=== PATIENT | male | born 1985 | race Caucasian/White ===

== ENCOUNTER 2019-01-13 15:10 | Emergency (ER) | payer BC, SELFPAY ==
[2019-01-13 15:14] VITALS: BP 176/117; PULSE 92; RESP 20; TEMP 36.8; O2SAT 98
--- NOTE | 2019-01-13 15:39 | DI.RAD_ITS ---
SYMPTOM/DIAGNOSIS: PALPITATIONS PA AND LATERAL CHEST: The heart is normal in size. The lungs are clear. The mediastinal structures and pleura appear intact. CONCLUSION: Normal chest.
--- NOTE | 2019-01-13 15:40 | W.ED.GENAD ---
Discharge Plan Disposition Patient Disposition: HOME Condition: Improving Discharge Details Chief Complaint: Anxiety Clinical Impression: Palpitations Primary Care Provider: Mayi Lau ED Provider: Bakari Masters Home Meds and New Rx's Prescriptions: Continued buprenorphine-naloxone [Suboxone] 8-2 mg Film 1 film Sublingual DAILY RF: 0 Discharge Instructions Instructions: Palpitations (ED) Additional Instructions: Your workup including a cardiac troponin, thyroid testing, chest x-ray, EKG were unremarkable. Our care management team will arrange a follow-up appointment for you in clinic for recheck. Return if you have recurrent palpitations, develop chest pain, or any other acute concerns. Medical Decision Making 33-year-old male who states yesterday and today had brief 1-2-minute episodes of palpitations and rapid heart rate while at work. No chest pain or shortness of breath or so, with that, it improved on its own. He states he developed increased anxiety after looking things up on the Internet. He arrives to the emergency department with blood pressure 176/117, pulse 92, otherwise normal vital signs. Differential diagnosis includes but not limited to: benign palpitations, anxiety, thyroid abnormality, dehydration or electrolyte abnormality. Screening EKG, laboratories, chest x-ray obtained. Laboratories are unremarkable. X-ray without acute findings. He is improved. Discussed with him that if he has recurrent episodes of palpitations he may benefit from a Holter monitor. We will ask care management to arrange an outpatient follow-up with Mayi Lau his primary care physician. He understands homecare as well as return precautions. Lab Data Lab results reviewed: Yes I reviewed the patient's lab results. Laboratory Results - last 24 hr 01/13/19 01/13/19 16:00 16:00 WBC 7.27 RBC 5.67 Hgb 16.1 Hct 46.8 MCV 82.5 MCH 28.4 MCHC 34.4 RDW 13.5 Plt Count 261 MPV 10.8 Immature Gran % 0.1 Neutrophils % 85.9 Lymphocytes % 9.9 Monocytes % 3.7 Eosinophils % 0.1 Basophils % 0.3 Absolute Neutrophils 6.24 Absolute Lymphocytes 0.72 L Absolute Monocytes 0.27 Absolute Eosinophils 0.01 Absolute Basophils 0.02 Sodium 137 Potassium 3.9 Chloride 100 Carbon Dioxide 25.1 Anion Gap 11.9 H BUN 14 Creatinine 0.77 Estimated GFR/1.73 m2 >= 60.00 Glucose 121 H Calcium 9.0 Magnesium 1.9 Total Bilirubin 0.7 AST 20 ALT 31 Alkaline Phosphatase 85 Troponin I < 0.02 Total Protein 8.2 Albumin 4.3 TSH 0.46 ECG Data Attestation: I personally reviewed and interpreted this ECG (s) as follows: Interpretation: Normal sinus rhythm with a rate of 84, the QRS is narrow, the CA interval is 118, no ST segment elevation. HPI General Mode of arrival: ambulatory. Date/Time Provider Initiated Documentation: 01/13/19 15:18. Limitations to Documentation: no limitations. Information obtained by: patient. History of Present Illness 33 year old M presents to the emergency department with the chief complaint of Palpitations briefly yesterday and today, described as moderate, Quality is described as other (Rapid heart rate), and is localized to the chest. Patient reports no radiation. Patient started experiencing this minute(s) and it has been now resolved. No relieving factors improve symptom(s), No exacerbating factors reported . Patient notes other (States he felt weird ). Patient did receive the following treatments prior to arrival, none Related Data Home Medications Medication Instructions Recorded Confirmed buprenorphine-naloxone [Suboxone] 1 film SUBLINGUAL DAILY 01/13/19 01/13/19 Allergies Allergy/AdvReac Type Severity Reaction Status Date / Time No Known Allergies Allergy Unverified 01/13/19 15:19 General Stated Complaint: Anxiety LUCRECIA: 3 Review of Systems Review of Systems 6 systems reviewed and otherwise negative. No chest pain, no shortness of breath, no weight gain or loss. No headache. [facility] Social History Smoking/Tobacco Use Status: Current every day Tobacco Type: smokeless tobacco Substance use type: marijuana Details: tried smoking marijuana again for first time in a long time a few days ago Exam Narrative Exam Narrative: GEN: awake, alert, oriented 3. Pleasant, well groomed, interactive. HEAD: Normocephalic, atraumatic ENT: Mucous membranes moist, oropharynx unremarkable, External ear exam unremarkable EYES: PERRL, EOMI NECK: Full ROM, no AGUSTIN, no menigismus CHEST/RESP: Nontender, clear to auscultation bilateral, no wheeze/rhonchi/rales CARDIOVASCULAR: RRR, no murmur, rub megha. 2+ Rad pulse bilateral ABDOMEN: Soft, nontender, no mass. +Bowel sounds EXT: Full ROM, no edema, no rash Neuro: Grossly normal neurologic exam, conversant, interactive. Psych: Speech fluent, thoughts congruent, affect normal Course Vital Signs Temperature 36.8 C 01/13/19 15:14 Pulse 92 H 01/13/19 15:14 Respiratory Rate 20 01/13/19 15:14 Blood Pressure 176/117 H 01/13/19 15:14 Pulse Oximetry 98 01/13/19 15:14 Temperature 36.8 C 01/13/19 15:14 Temperature Source Temporal Artery Scan 01/13/19 15:14 Pulse 92 H 01/13/19 15:14 Respiratory Rate 20 01/13/19 15:14 Respiratory Effort Non-Labored 01/13/19 15:14 Blood Pressure 176/117 H 01/13/19 15:14 Blood Pressure Position Sitting 01/13/19 15:14 Pulse Oximetry 98 01/13/19 15:14 Pain Level 0 01/13/19 15:14
--- NOTE | 2019-01-13 15:43 | ED.GENADUL_ITS ---
Discharge Plan Disposition Patient Disposition: HOME Condition: Improving Discharge Details Chief Complaint: Anxiety Clinical Impression: Palpitations Primary Care Provider: Mayi Lau ED Provider: Bakari Masters Home Meds and New Rx's Prescriptions: Continued buprenorphine-naloxone [Suboxone] 8-2 mg Film 1 film Sublingual DAILY RF: 0 Discharge Instructions Instructions: Palpitations (ED) Additional Instructions: Your workup including a cardiac troponin, thyroid testing, chest x-ray, EKG were unremarkable. Our care management team will arrange a follow-up appointment for you in clinic for recheck. Return if you have recurrent palpitations, develop chest pain, or any other acute concerns. Medical Decision Making 33-year-old male who states yesterday and today had brief 1-2-minute episodes of palpitations and rapid heart rate while at work. No chest pain or shortness of breath or so, with that, it improved on its own. He states he developed increased anxiety after looking things up on the Internet. He arrives to the emergency department with blood pressure 176/117, pulse 92, otherwise normal vital signs. Differential diagnosis includes but not limited to: benign palpitations, anxiety, thyroid abnormality, dehydration or electrolyte abnormality. Screening EKG, laboratories, chest x-ray obtained. Laboratories are unremarkable. X-ray without acute findings. He is improved. Discussed with him that if he has recurrent episodes of palpitations he may benefit from a Holter monitor. We will ask care management to arrange an outpatient follow-up with Mayi Lau his primary care physician. He understands homecare as well as return precautions. Lab Data Lab results reviewed: Yes I reviewed the patient's lab results. Laboratory Results - last 24 hr 01/13/19 01/13/19 16:00 16:00 WBC 7.27 RBC 5.67 Hgb 16.1 Hct 46.8 MCV 82.5 MCH 28.4 MCHC 34.4 RDW 13.5 Plt Count 261 MPV 10.8 Immature Gran % 0.1 Neutrophils % 85.9 Lymphocytes % 9.9 Monocytes % 3.7 Eosinophils % 0.1 Basophils % 0.3 Absolute Neutrophils 6.24 Absolute Lymphocytes 0.72 L Absolute Monocytes 0.27 Absolute Eosinophils 0.01 Absolute Basophils 0.02 Sodium 137 Potassium 3.9 Chloride 100 Carbon Dioxide 25.1 Anion Gap 11.9 H BUN 14 Creatinine 0.77 Estimated GFR/1.73 m2 >= 60.00 Glucose 121 H Calcium 9.0 Magnesium 1.9 Total Bilirubin 0.7 AST 20 ALT 31 Alkaline Phosphatase 85 Troponin I < 0.02 Total Protein 8.2 Albumin 4.3 TSH 0.46 ECG Data Attestation: I personally reviewed and interpreted this ECG (s) as follows: Interpretation: Normal sinus rhythm with a rate of 84, the QRS is narrow, the OR interval is 118, no ST segment elevation. HPI General Mode of arrival: ambulatory . Date/Time Provider Initiated Documentation: 01/13/19 15:18 . Limitations to Documentation: no limitations . Information obtained by: patient . History of Present Illness 33 year old M presents to the emergency department with the chief complaint of Palpitations briefly yesterday and today, described as moderate, Quality is described as other (Rapid heart rate), and is localized to the chest. Patient reports no radiation. Patient started experiencing this minute(s) and it has been now resolved. No relieving factors improve symptom(s), No exacerbating factors reported . Patient notes other (States he felt weird ). Patient did receive the following treatments prior to arrival, none Related Data Home Medications Medication Instructions Recorded Confirmed buprenorphine-naloxone [Suboxone] 1 film SUBLINGUAL DAILY 01/13/19 01/13/19 Allergies Allergy/AdvReac Type Severity Reaction Status Date / Time No Known Allergies Allergy Unverified 01/13/19 15:19 General Stated Complaint: Anxiety LUCRECIA: 3 Review of Systems Review of Systems 6 systems reviewed and otherwise negative. No chest pain, no shortness of breath, no weight gain or loss. No headache. [facility] Social History Smoking/Tobacco Use Status: Current every day Tobacco Type: smokeless tobacco Substance use type: marijuana Details: tried smoking marijuana again for first time in a long time a few days ago Exam Narrative Exam Narrative: GEN: awake, alert, oriented 3. Pleasant, well groomed, interactive. HEAD: Normocephalic, atraumatic ENT: Mucous membranes moist, oropharynx unremarkable, External ear exam unremarkable EYES: PERRL, EOMI NECK: Full ROM, no AGUSTIN, no menigismus CHEST/RESP: Nontender, clear to auscultation bilateral, no wheeze/rhonchi/rales CARDIOVASCULAR: RRR, no murmur, rub megha. 2+ Rad pulse bilateral ABDOMEN: Soft, nontender, no mass. +Bowel sounds EXT: Full ROM, no edema, no rash Neuro: Grossly normal neurologic exam, conversant, interactive. Psych: Speech fluent, thoughts congruent, affect normal Course Vital Signs Temperature 36.8 C 01/13/19 15:14 Pulse 92 H 01/13/19 15:14 Respiratory Rate 20 01/13/19 15:14 Blood Pressure 176/117 H 01/13/19 15:14 Pulse Oximetry 98 01/13/19 15:14 Temperature 36.8 C 01/13/19 15:14 Temperature Source Temporal Artery Scan 01/13/19 15:14 Pulse 92 H 01/13/19 15:14 Respiratory Rate 20 01/13/19 15:14 Respiratory Effort Non-Labored 01/13/19 15:14 Blood Pressure 176/117 H 01/13/19 15:14 Blood Pressure Position Sitting 01/13/19 15:14 Pulse Oximetry 98 01/13/19 15:14 Pain Level 0 01/13/19 15:14
--- NOTE | 2019-01-13 15:51 | NUR.NOTE ---
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
[2019-01-13 15:56] VITALS: BP 152/103
[2019-01-13 16:12] LABS: Abs Immature Grans 0.01 k/cumm (0.0-0.09); Absolute Basophil Count 0.02 k/cumm (0.0-0.2); Absolute Eosinophil Count 0.01 k/cumm (0.0-0.7); Absolute Lymphocyte Count 0.72 k/cumm (1.2-3.4); Absolute Monocyte Count 0.27 k/cumm (0.11-0.7); Absolute Neutrophil Count 6.24 k/cumm (1.2-6.7); Basophils % 0.3; Eosinophils % 0.1; HCT 46.8 % (40.0-50.0); HGB 16.1 g/dL (13.5-17.5); Immature Grans % 0.1; Lymphocytes % 9.9; Mean Corp. HGB Concentration 34.4 g/dL (32.0-36.0); Mean Corpuscular Hemoglobin 28.4 pg (27.0-33.0); Mean Corpuscular Volume 82.5 fL (80-95); Mean Platelet Volume 10.8 fL (8.0-11.0); Monocytes % 3.7; Neutrophils % 85.9; Platelet Count 261 x1000/uL (130-400); RBC 5.67 m/cumm (4.50-6.00); RBC Distribution Width 13.5 % (11.8-14.1); White Blood Cell Count 7.27 k/cumm (4.4-10.8)
[2019-01-13 16:31] LABS: ALT 31 U/L (12-78); AST 20 U/L (15-37); Albumin 4.3 g/dL (3.4-5.0); Alkaline Phosphatase 85 U/L (46-116); Anion Gap 11.9 mmol/L (3-11); BUN 14 mg/dL (7-18); Bilirubin, Total 0.7 mg/dL (0.2-1.0); CO2 25.1 mmol/L (21.0-32.0); CREATININE 0.77 mg/dL (0.70-1.30); Chloride 100 mmol/L (98-107); Glucose 121 mg/dL (70-100); Magnesium 1.9 mg/dL (1.8-2.4); Potassium 3.9 mmol/L (3.5-5.1); Sodium 137 mmol/L (136-145); TSH (W/Ref FT4) 0.46 uIU/mL (0.358-3.74); Total Protein 8.2 g/dL (6.4-8.2)
[2019-01-13 16:35] LABS: Troponin I < 0.02 ng/mL (0.00-0.06)
--- NOTE | 2019-01-13 16:44 | DI.VRAD_ITS ---
EXAM: XR Chest, 2 Views EXAM DATE/TIME: 01/13/2019 3:40 PM CLINICAL HISTORY: 33 years old, male; Signs and symptoms; Other: Palpitations TECHNIQUE: Imaging protocol: XR of the chest, 2 views. COMPARISON: No relevant prior studies available. FINDINGS: Lungs: Unremarkable. No consolidation. Pleural space: Unremarkable. No pleural effusion. No pneumothorax. Heart/Mediastinum: Unremarkable. No cardiomegaly. Bones/joints: Unremarkable. IMPRESSION: No acute findings Dictated and Authenticated by: Bruna Bhatt MD. Ordering:MASHA Villegas MD
[2019-01-13 17:25] VITALS: BP 153/93; PULSE 92; RESP 18; TEMP 36.8; O2SAT 98
[2019-01-13 18:32] VITALS: RESP 18
--- NOTE | 2019-01-14 08:38 | PDOC.ERCMPRO ---
Care Management Progress Note 01/14-Dr. Masters requested assistance with a PCP (Mayi Lau) f/u in 1-2 weeks for palpitations. Referral faxed to [facility] this am.
== END 2019-01-13 17:25 | disposition home or self-care (01) ==
PROVIDERS: Emergency Provider Emergency Medicine; PCP Nurse Practitioner Family
DX: R00.0 Tachycardia, unspecified (principal); F41.9 Anxiety disorder, unspecified
CPT/HCPCS: 36415; 80053; 99284; 71046; 83735; 84443; 84484; 85025

== ENCOUNTER 2019-03-30 12:22 | Outpatient (REF) | payer BC, SELFPAY ==
[2019-03-30 21:37] LABS: Calculated LDL 115; Cholesterol 176 mg/dL (50-200); HDL Cholesterol 51 mg/dL (40-60); Triglyceride 52 mg/dL (30-150)
== END 2019-03-30 12:42 ==
LOC: NCHCN 12:22
PROVIDERS: PCP Nurse Practitioner Family; Visit Provider Registered Nurse
DX: Z00.00 Encounter for general adult medical examination without abnormal findings (principal); E66.9 Obesity, unspecified; Z13.220 Encounter for screening for lipoid disorders
CPT/HCPCS: 80061; 83721

== ENCOUNTER 2019-12-06 13:00 | Outpatient (REF) | payer BC, SELFPAY ==
[2019-12-06 22:07] LABS: Anion Gap 8.2 mmol/L (3-11); BUN 12 mg/dL (7-18); CO2 28.8 mmol/L (21.0-32.0); CREATININE 0.83 mg/dL (0.70-1.30); Chloride 102 mmol/L (98-107); Glucose 102 mg/dL (74-106); Potassium 4.6 mmol/L (3.5-5.1); Sodium 139 mmol/L (136-145)
== END 2019-12-06 13:20 ==
LOC: NCHCN 13:00
PROVIDERS: PCP Nurse Practitioner Family; Visit Provider Registered Nurse
DX: I10 Essential (primary) hypertension (principal)
CPT/HCPCS: 80048

== ENCOUNTER 2020-03-23 15:23 | Outpatient (REF) | payer BC, SELFPAY ==
[2020-03-23 21:11] LABS: Hemoglobin A1C 5.4 % (3.8-5.6)
[2020-03-23 21:19] LABS: ALT 56 U/L (16-63); AST 23 U/L (15-37); Albumin 4.2 g/dL (3.4-5.0); Alkaline Phosphatase 73 U/L (46-116); Bilirubin, Direct 0.13 mg/dL (0.00-0.20); Bilirubin, Total 0.5 mg/dL (0.2-1.0); Total Protein 7.7 g/dL (6.4-8.2)
== END 2020-03-23 15:43 ==
LOC: NCHCN 15:23
PROVIDERS: PCP Nurse Practitioner Family; Visit Provider Registered Nurse
DX: F10.10 Alcohol abuse, uncomplicated (principal); E66.9 Obesity, unspecified
CPT/HCPCS: 80076; 83036

== ENCOUNTER 2020-10-12 17:03 | Emergency (ER) | payer BC, SELFPAY ==
[2020-10-12] VITALS (21 sets, daily range): BP systolic 100–140; BP diastolic 54–79; PULSE 55–77; RESP 12–22; TEMP 36.5–36.8; O2SAT 93–98
--- NOTE | 2020-10-12 16:45 | RT.EKG_ITS ---
APPROVED REPORT Exam: Resting ECG Patient Location: E HR:66 bpm ECG Measurements Heart Rate 66 AXIS OR 142 P 29 QRSd 101 QRS 17 QT 377 T 14 QTc 393 Conclusion Sinus rhythm...normal P axis, V-rate 60- 99 Multiple ventricular premature complexes...V complexes w/ short R-R intervls
--- NOTE | 2020-10-12 17:14 | ED.GENADUL_ITS ---
Discharge Plan Disposition Patient Disposition: HOME Condition: Improving Discharge Details Clinical Impression: Premature ventricular contractions (PVCs) (VPCs) Primary Care Provider: Mayi Lau ED Provider: Bakari Masters Home Meds and New Rx's Prescriptions: Continued lisinopril 10 mg tablet 10 mg PO DAILY RF: 0 buprenorphine-naloxone 2-0.5 mg film 1 film sublingual DAILY RF: 0 buprenorphine-naloxone 4-1 mg film 1 film sublingual DAILY RF: 0 Discharge Instructions Instructions: Heart Palpitations (ED) Additional Instructions: Your blood work today was reassuring. I have enclosed it for your records. Return to the ER for any acute concerns. Small, frequent fluid so that you maintain hydration. WBC 5.31 RBC 4.87 Hgb 13.8 Hct 41.4 MCV 85.0 MCH 28.3 MCHC 33.3 RDW 12.0 Plt Count 239 Sodium 139 Potassium 4.1 Chloride 104 Carbon Dioxide 29.0 Anion Gap 6.0 BUN 12 Creatinine 0.78 Estimated GFR/1.73 m2 >= 60.00 Glucose 94 Calcium 8.8 Magnesium 2.0 Total Bilirubin 0.6 AST 15 ALT 42 Alkaline Phosphatase 67 Troponin I < 0.05 Total Protein 7.3 Albumin 4.0 Medical Decision Making 34-year-old male with a history of palpitations. He was at work today when he felt intermittent episodes of heart racing and palpitations. EMS was called and PVCs were noted on his tracing which otherwise showed a sinus rhythm. Patient denies chest pain, no shortness of breath, no syncope. Minimal stress in his life. He will note a recent effort to minimize alcohol use. Reports that after seen by me in January 2019 he followed up with his primary care and the patient reports a negative Holter monitor and echocardiogram as an outpatient. He arrives improved, afebrile, normotensive with unremarkable exam. Given a liter fluid bolus, 1 g of magnesium and referred for laboratory testing. Patient has a normal CBC, normal chemistries, negative troponin. He is improved without any further intervention. Given that he has previously had echocardiogram and Holter monitor, this is consistent with benign PVCs. Discussed with him indications to seek reevaluation. He stable and improved, appropriate for discharge home at this time. Lab Data Lab results reviewed: Yes I reviewed the patient's lab results. Labs: Laboratory Results - last 24 hr 10/12/20 10/12/20 17:40 17:40 WBC 5.31 RBC 4.87 Hgb 13.8 Hct 41.4 MCV 85.0 MCH 28.3 MCHC 33.3 RDW 12.0 Plt Count 239 MPV 10.9 Immature Gran % 0.2 Neutrophils % 75.9 Lymphocytes % 16.9 Monocytes % 5.1 Eosinophils % 1.1 Basophils % 0.8 Nucleated RBC % 0 Absolute Neutrophils 4.03 Absolute Lymphocytes 0.90 L Absolute Monocytes 0.27 Absolute Eosinophils 0.06 Absolute Basophils 0.04 Sodium 139 Potassium 4.1 Chloride 104 Carbon Dioxide 29.0 Anion Gap 6.0 BUN 12 Creatinine 0.78 Estimated GFR/1.73 m2 >= 60.00 Glucose 94 Calcium 8.8 Magnesium 2.0 Total Bilirubin 0.6 AST 15 ALT 42 Alkaline Phosphatase 67 Troponin I < 0.05 Total Protein 7.3 Albumin 4.0 HPI General Mode of arrival: EMS . Date/Time Provider Initiated Documentation: 10/12/20 18:25 . Limitations to Documentation: no limitations . Information obtained by: patient and EMS . History of Present Illness 34 year old M presents to the emergency department with the chief complaint of Palpitations at work, similar to previous, described as similar to prior episodes, and is localized to the chest. Patient reports no radiation. Patient started experiencing this hour(s) and it has been intermittent. No relieving factors improve symptom(s), No exacerbating factors reported . Patient notes denies chest pain, shortness of breath and syncope. Patient did receive the following treatments prior to arrival, none Related Data Home Medications Medication Instructions Recorded Confirmed buprenorphine-naloxone 1 film SUBLINGUAL DAILY 10/12/20 10/12/20 buprenorphine-naloxone 1 film SUBLINGUAL DAILY 10/12/20 10/12/20 lisinopril 10 mg PO DAILY 10/12/20 10/12/20 Allergies Allergy/AdvReac Type Severity Reaction Status Date / Time amoxicillin AdvReac Nausea Unverified 10/12/20 17:00 General Stated Complaint: Palpitatns LUCRECIA: 3 Review of Systems Narrative: Minimal stress at home. Reports negative echocardiogram and Holter monitor within the past 12 months. No chest pain. 8 systems reviewed and otherwise negative [facility] Social History Smoking/Tobacco Use Status: Current every day Tobacco Type: smokeless tobacco Smoking risk assessment performed?: Yes Drug use: Current Sobriety Substance use type: does not use Do you feel safe at home: Yes Do you feel safe in your relationship?: Yes Exam Narrative Exam Narrative: GEN: awake, alert, oriented 3. Pleasant, well groomed, interactive. HEAD: Normocephalic, atraumatic ENT: Mucous membranes moist, oropharynx unremarkable, External ear exam unremarkable EYES: PERRL, EOMI NECK: Full ROM, no AGUSTIN, no menigismus CHEST/RESP: Nontender, clear to auscultation bilateral, no wheeze/rhonchi/rales CARDIOVASCULAR: RRR, no murmur, rub megha. 2+ Rad pulse bilateral ABDOMEN: Soft, nontender, no mass. +Bowel sounds EXT: Full ROM, no edema, no rash Neuro: Grossly normal neurologic exam, conversant, interactive. Psych: Speech fluent, thoughts congruent, affect normal Course Vital Signs Vital signs: Vital Signs Temperature 36.8 C 10/12/20 16:57 Pulse 77 10/12/20 16:57 Respiratory Rate 16 10/12/20 16:57 Blood Pressure 140/79 10/12/20 16:57 Pulse Oximetry 98 10/12/20 16:57 Temperature 36.8 C 10/12/20 16:57 Temperature Source Skin 10/12/20 16:57 Pulse 77 10/12/20 16:57 Respiratory Rate 16 10/12/20 16:57 Respiratory Effort Non-Labored 10/12/20 17:02 Blood Pressure 140/79 10/12/20 16:57 Blood Pressure Position Sitting 10/12/20 16:57 Pulse Oximetry 98 10/12/20 16:57 Oxygen Delivery Method Room Air 10/12/20 16:57 Oxygen Flow Rate 0 10/12/20 16:57 Pain Level 0 10/12/20 16:57
[2020-10-12] MEDS: Normal Saline 1,000 ML 1000 ML IV (17:40)
[2020-10-12] MEDS: Normal Saline Flush 10 ML SYR IVP (17:40)
[2020-10-12] MEDS: MAGNESIUM SULFATE 1 GM/100 ML BAG IVPB (17:45)
[2020-10-12 17:46] LABS: Abs Immature Grans 0.01 10^3/uL (0.0-0.06); Absolute Basophil Count 0.04 10^3/uL (0.0-0.2); Absolute Eosinophil Count 0.06 10^3/uL (0.0-0.7); Absolute Monocyte Count 0.27 10^3/uL (0.1-0.8); Absolute Neutrophil Count 4.03 10^3/uL (1.2-6.7); Basophils % 0.8; Eosinophils % 1.1; HCT 41.4 % (40.0-50.0); HGB 13.8 g/dL (13.5-17.5); Immature Grans % 0.2; Lymphocytes % 16.9; MCH 28.3 pg (27.0-33.0); MCHC 33.3 % (32.0-36.0); MPV 10.9 fL (8.0-11.0); Monocytes % 5.1; Neutrophils % 75.9; Nucleated RBC 0 %; Platelet Count 239 10^3/uL (130-400); RBC 4.87 10^6/uL (4.36-5.78); RDW-SD 36.9 fL; WBC 5.31 10^3/uL (4.4-10.8)
[2020-10-12 18:14] LABS: ALT 42 U/L (16-63); AST 15 U/L (15-37); Alkaline Phosphatase 67 U/L (46-116); BUN 12 mg/dL (7-18); Bilirubin, Total 0.6 mg/dL (0.2-1.0); CREATININE 0.78 mg/dL (0.70-1.30); Calcium 8.8 mg/dL (8.5-10.1); Chloride 104 mmol/L (98-107); Glucose 94 mg/dL (74-106); Potassium 4.1 mmol/L (3.5-5.1); Sodium 139 mmol/L (136-145); Total Protein 7.3 g/dL (6.4-8.2)
[2020-10-12 18:17] LABS: Troponin I < 0.05 ng/mL (<0.06)
== END 2020-10-12 19:08 | disposition home or self-care (01) ==
LOC: ER 18:38
PROVIDERS: Emergency Provider Emergency Medicine; PCP Registered Nurse
DX: I49.3 Ventricular premature depolarization (principal)
CPT/HCPCS: 36415; 80053; 93005; 96361; 96365; 99284; 83735; 84484; 85025; 93010; J3475

== ENCOUNTER 2022-08-07 23:19 | Outpatient (REF) | payer BC, SELFPAY ==
[2022-08-07 21:52] LABS: ALT 39 U/L (16-63); AST 20 U/L (15-37); Alkaline Phosphatase 74 U/L (46-116); Anion Gap 6.1 mmol/L (3-11); BUN 13 mg/dL (7-18); Bilirubin, Total 0.4 mg/dL (0.2-1.0); CO2 28.9 mmol/L (21.0-32.0); CREATININE 0.7 mg/dL (0.70-1.30); Calcium 9.1 mg/dL (8.5-10.1); Calculated LDL 116 mg/dL (<100); Chloride 103 mmol/L (98-107); Cholesterol 184 mg/dL (<200); Estimated GFR 123.23 (mL/min/1.73m2); Glucose 92 mg/dL (74-106); HDL Cholesterol 55 mg/dL (40-60); Potassium 4.6 mmol/L (3.5-5.1); Sodium 138 mmol/L (136-145); TSH 0.76 uIU/mL (0.36-3.74); Total Protein 7.5 g/dL (6.4-8.2); Triglyceride 66 mg/dL (<150)
[2022-08-07 22:10] LABS: Hemoglobin A1C 5.4 % (<5.7)
== END 2022-08-07 23:20 | disposition home or self-care (01) ==
LOC: NCHCN 23:19
PROVIDERS: PCP Registered Nurse; Visit Provider Registered Nurse
DX: I10 Essential (primary) hypertension (principal); E66.9 Obesity, unspecified; Z13.220 Encounter for screening for lipoid disorders
CPT/HCPCS: 80053; 80061; 83036; 84443